=== PATIENT | female | born 1955 | race Caucasian/White ===

== ENCOUNTER 2024-01-13 12:12 | Emergency (ER) | payer MEDICARE, MEDICAID | END 2024-01-13 14:08 | disposition left against medical advice (07) | LOC: ER 12:13 | DX: Z76.0 Encounter for issue of repeat prescription (principal); Z53.21 Procedure and treatment not carried out due to patient leaving prior to being seen by health care provider ==

== ENCOUNTER 2024-08-18 12:24 | Outpatient (CLI) | payer MEDICARE, MEDICAID ==
[~2024-08-18] VITALS: Ht 170.2 cm; Wt 90.0 kg
[2024-08-18 14:23] VITALS: BP 151/76; PULSE 77; RESP 18; O2SAT 95
[2024-08-18] MEDS: regadenoson 0.4mg/5ml syringe IV ONE (14:23)
[2024-08-18 14:30] VITALS: BP 133/57; PULSE 80; RESP 18; O2SAT 96
[2024-08-18 14:31] VITALS: BP 94/54; PULSE 107; RESP 18; O2SAT 96
[2024-08-18 14:32] VITALS: BP 108/65; PULSE 108; RESP 18; O2SAT 96
[2024-08-18 14:33] VITALS: BP_SYST 129; BP_SYST 140; BP_DIAS 67; BP_DIAS 71; PULSE 109; PULSE 110; RESP 18; O2SAT 96
[2024-08-18 14:34] VITALS: BP 133/73; PULSE 106; RESP 18; O2SAT 96
== END 2024-08-18 23:59 | disposition home or self-care (01) ==
LOC: RAD 12:24
PROVIDERS: ATTEND Internal Medicine Interventional Cardiology
DX: R94.31 Abnormal electrocardiogram [ECG] [EKG] (principal)
CPT/HCPCS: 78452; 93017; A9500; J2785